=== PATIENT | female | born 1965 | race Caucasian/White ===

== ENCOUNTER 2016-10-25 16:28 | Emergency (ER) | payer MEDICARE, OTHER ==
[2016-10-25 18:17] LABS: BUN/CREATININE RATIO 20 (0-10)
[2016-10-25 18:30] LABS: HEMOGLOBIN 10.5 gm/dl (12.3-15.3); RED BLOOD COUNT 3.77 M/UL (4.00-5.10); WHITE BLOOD COUNT 17.8 K/UL (4.5-11.0)
== END 2016-10-26 00:01 | disposition home or self-care (01) ==
LOC: ER1 16:28
PROVIDERS: Family Medicine
DX: G43.909 Migraine, unspecified, not intractable, without status migrainosus (principal); Z88.8 Allergy status to other drugs, medicaments and biological substances; Z79.899 Other long term (current) drug therapy
CPT/HCPCS: 36415; 80053; 82550; 82553; 83874; 84484; 85025; 96374; 96375; 96376; 99284; J1200; J1885; J2270; J2550; J2765; J7030

== ENCOUNTER 2021-02-17 16:28 | Emergency (ER) | payer MEDICARE, OTHER ==
[2021-02-17 18:05] LABS: HEMOGLOBIN 12.8 gm/dl (12.3-15.3); RED BLOOD COUNT 4.49 M/UL (4.00-5.10); WHITE BLOOD COUNT 9.1 K/UL (4.5-11.0)
[2021-02-17 18:33] LABS: BUN/CREATININE RATIO 15 (0-10)
[2021-02-17] MEDS ORDERED: KEPPRA500 MG PO (21:55)
[2021-02-17] MEDS ORDERED: IMITREX50 MG PO (21:55)
[2021-02-17] MEDS ORDERED: ONDANSETRON ODT4 MG SL (21:55)
== END 2021-02-17 22:37 | disposition home or self-care (01) ==
LOC: ER1 16:28
PROVIDERS: Physician Assistant
DX: G43.909 Migraine, unspecified, not intractable, without status migrainosus (principal); R55 Syncope and collapse; R07.89 Other chest pain; I10 Essential (primary) hypertension; G40.909 Epilepsy, unspecified, not intractable, without status epilepticus; Z90.49 Acquired absence of other specified parts of digestive tract; Z90.710 Acquired absence of both cervix and uterus; Z88.8 Allergy status to other drugs, medicaments and biological substances
CPT/HCPCS: 71045; 80053; 81001; 82550; 82553; 83874; 84484; 85025; 85379; 93005; 96374; 96375; 99284; J0595; J1200; J1885; J1953; J2765; J7030

== ENCOUNTER 2021-05-04 13:34 | Emergency (ER) | payer MEDICARE ==
[~2021-05-04 13:34] MED LIST: IMITREX50 MG PO; KEPPRA500 MG PO; ONDANSETRON ODT4 MG SL
[2021-05-04 14:19] LABS: HEMOGLOBIN 13.1 gm/dl (12.3-15.3); RED BLOOD COUNT 4.8 M/UL (4.00-5.10); WHITE BLOOD COUNT 8.8 K/UL (4.5-11.0)
[2021-05-04 14:48] LABS: BUN/CREATININE RATIO 11 (0-10)
== END 2021-05-04 15:18 | disposition home or self-care (01) ==
LOC: ER1 13:34
PROVIDERS: Emergency Medicine
DX: I63.9 Cerebral infarction, unspecified (principal); R29.708 NIHSS score 8
CPT/HCPCS: 70450; 71045; 80053; 82550; 82553; 83874; 84484; 85025; 85610; 85730; 93005; 99285